=== PATIENT | female | born 1990 | race Hispanic/Latino ===

== ENCOUNTER 2018-08-12 18:47 | Emergency (ER) | payer OTHER ==
[~2018-08-12] VITALS: Ht 157.5 cm; Wt 72.6 kg
--- NOTE | 2018-08-12 19:36 | Diagnostic Imaging Report ---
KNEE 2 VIEW LT - HOPD - 2 views HISTORY: Pain COMPARISON: None available. FINDINGS: Bones: No acute displaced fracture. Osseous alignment is within normal limits. Joints: Suspected small suprapatellar joint effusion. Soft tissues: The soft tissues appear unremarkable. IMPRESSION: No acute fracture or dislocation of the left knee. Signed by: Dr. Alcides Guido MD on 08/12/2018 7:32 PM
== END 2018-08-12 20:16 | disposition home or self-care (01) ==
LOC: FSED 18:47
DX: S83.92XA Sprain of unspecified site of left knee, initial encounter (principal); X50.1XXA Overexertion from prolonged static or awkward postures, initial encounter; W50.0XXA Accidental hit or strike by another person, initial encounter; Y99.0 Civilian activity done for income or pay
CPT/HCPCS: 99283